=== PATIENT | male | born 1980 | race Two or more races ===

== ENCOUNTER 2018-10-10 20:33 | Emergency (ER) | payer SELFPAY ==
[~2018-10-10] VITALS: Ht 175.3 cm; Wt 102.0 kg
[2018-10-10 20:35] VITALS: BP 152/94
== END 2018-10-10 23:40 | disposition left against medical advice (07) ==
LOC: ER 20:33
DX: R07.89 Other chest pain (principal); Z53.21 Procedure and treatment not carried out due to patient leaving prior to being seen by health care provider